=== PATIENT | female | born 1995 | race Caucasian/White ===

== ENCOUNTER 2018-11-30 14:52 | Emergency (ER) | payer SELFPAY ==
[~2018-11-30] VITALS: Ht 160 cm; Wt 63.6 kg
[2018-11-30] MEDS ORDERED: DEPA250T32 PO (15:01)
[2018-11-30] MEDS ORDERED: CELE10TA PO (15:01)
[2018-11-30 17:22] VITALS: BP 118/63
== END 2018-11-30 17:39 | disposition home or self-care (01) ==
LOC: M ED 14:52
DX: O99.341 Other mental disorders complicating pregnancy, first trimester (principal); F41.9 Anxiety disorder, unspecified; Z3A.01 Less than 8 weeks gestation of pregnancy; Z79.899 Other long term (current) drug therapy